=== PATIENT | female | born 1945 | race Caucasian/White ===

== ENCOUNTER → 2020-08-09 14:11 | Outpatient (BNVA) | payer OTHER, SELFPAY | PROVIDERS: PCP Family Medicine; Visit Provider Internal Medicine | DX: E11.65 Type 2 diabetes mellitus with hyperglycemia (principal); E78.5 Hyperlipidemia, unspecified; I10 Essential (primary) hypertension | CPT/HCPCS: 99204 ==

== ENCOUNTER → 2021-05-18 15:48 | Outpatient (BNVA) | payer MEDICARE, SELFPAY | PROVIDERS: PCP Family Medicine; Referring Provider Family Medicine; Visit Provider Podiatrist Foot & Ankle Surgery | DX: L97.512 Non-pressure chronic ulcer of other part of right foot with fat layer exposed (principal); L60.0 Ingrowing nail | CPT/HCPCS: 73630; 87070; 87075; 87077; 87186; 87205 ==

== ENCOUNTER 2021-09-22 07:44 | Outpatient (CLI) | payer MEDICARE, SELFPAY ==
[2021-09-22 08:33] LABS: Basophils # 0.1 10^3/uL (0.0-0.1); Basophils % 0.6 %; Eosinophils # 0.2 10^3/uL (0.0-0.8); Eosinophils % 1.8 %; Hematocrit 48.5 % (37.0-47.0); Hemoglobin 16.2 g/dL (11.5-15.3); Lymphocytes # 1.2 10^3/uL (0.8-4.8); Mean Corpuscular HGB Conc 33.4 g/dL (30.0-36.0); Mean Corpuscular Hemoglobin 29.9 pg (28.0-34.0); Mean Corpuscular Volume 89.5 fl (81-99); Mean Platelet Volume 9.9 fL (7.4-10.4); Monocytes # 1.1 10^3/uL (0.2-0.9); Monocytes % 12.5 %; Neutrophils # 5.92 10^3/uL (1.8-7.7); Neutrophils % 70.4 %; Nucleated Red Blood Cells % 0 %; Platelet Count 290 10^3/cmm (130-400); Red Blood Count 5.42 10^6/uL (4.1-5.3); Red Cell Distribution Width 13.7 % (12.1-15.1); White Blood Count 8.4 10^3/uL (4.0-10.0)
[2021-09-22 09:02] LABS: Alanine Aminotransferase 22 U/L (0-33); Albumin Level 4.4 g/dL (3.5-5.2); Alkaline Phosphatase 80 IU/L (35-105); Anion Gap 18.9 (5-19); Aspartate Amino Transferase 27 U/L (0-32); Blood Urea Nitrogen 15 mg/dL (8-23); Calcium 10.4 mg/dL (8.5-10.5); Carbon Dioxide 25 mmol/L (22-29); Chloride 97 mmol/L (98-107); Globulin 3.6 g/dL (1.3-4.6); Glucose 145 mg/dL (65-115); Lipase 21 U/L (13-60); Osmolality Calculated 287 mOsm/kg (285-295); Potassium 3.9 mmol/L (3.5-5.1); Sodium 137 mmol/L (136-145); Total Bilirubin 0.4 mg/dL (0.15-1.2)
[2021-09-22 09:04] LABS: Estmated Average Glucose 209; Hemoglobin A1C 8.9 % (4.0-6.0)
== END 2021-09-22 07:45 | disposition home or self-care (01) ==
PROVIDERS: PCP Family Medicine; Visit Provider Family Medicine
DX: E11.9 Type 2 diabetes mellitus without complications (principal); I10 Essential (primary) hypertension; D64.9 Anemia, unspecified
CPT/HCPCS: 80053; 83036; 83690; 85025

== ENCOUNTER → 2021-09-28 12:56 | Outpatient (BNVA) | payer MEDICARE, SELFPAY | PROVIDERS: PCP Family Medicine; Visit Provider Podiatrist Foot & Ankle Surgery | DX: M20.41 Other hammer toe(s) (acquired), right foot (principal); M20.42 Other hammer toe(s) (acquired), left foot; E11.65 Type 2 diabetes mellitus with hyperglycemia | CPT/HCPCS: 99214 ==

== ENCOUNTER 2021-10-21 11:34 | Emergency (ER) | payer MEDICARE, OTHER, SELFPAY ==
--- NOTE | 2021-10-21 11:37 | XR_ITS ---
WS: [id number] Cervical spine, 3 views, 10/21/2021 Clinical Data: trauma Comparison: None. Findings: No compression fractures are seen. There is degenerative disc narrowing at C4-C5, C5-C6 and C6-C7. There is anterior osteophyte formation from C4 through C6. There is no prevertebral soft tiss ue swelling. The odontoid is unremarkable. The soft tissues of the neck and the lung apices show only minimal calcification in the region of the right carotid bifurcation. XR/XR cervical spine 3V* [id number] Impression: 1. Negative for cervical spine fracture. 2. Osteoarthritis and degenerative disc disease C4-C6.
[2021-10-21 12:13] VITALS: BP 166/102; PULSE 92; RESP 16; TEMP 37.1; O2SAT 98; BMI 36.6
--- NOTE | 2021-10-21 12:28 | XR_ITS ---
WS: [id number] 3 views of the left second finger, 10/21/2021 Clinical Data: Trauma Comparison: None. Findings: No fractures or dislocations are seen. The soft tissues are normal. The epiphyses and joint spaces ar e not remarkable. XR/XR finger LT min 2V [id number] Impression: Negative left second finger.
--- NOTE | 2021-10-21 12:28 | XR_ITS ---
WS: [id number] Nasal bones, 3 views, 10/21/2021 Clinical Data: Trauma Comparison: None. Findings: No nasal bone fractures are seen. The nasal spine is intact. The adjacent orbits and sinuses show no abnormalities. XR/XR nasal bones min 3V [id number] Impression: Negative nasal bones.
--- NOTE | 2021-10-21 12:28 | XR_ITS ---
WS: [email or web address] 2 views of the right second finger, 10/21/2021 Clinical Data: Trauma Comparison: None. Findings: No definite fractures or dislocations are seen. The soft tissues are normal. The joint spaces are not remarkable. There is a small fragment adjacent to the distal portion of the right second finger middle phalanx wh ich could represent a minimal avulsion fracture. XR/XR finger RT min 2V [id number] Impression: Minimal fragment adjacent to the distal portion of the right second finger midd le phalanx, questionable avulsion fracture.
--- NOTE | 2021-10-21 13:20 | ED_ITS ---
HPI - Fall General: Chief Complaint: Fall Stated Complaint: WC-FALL AT WORK/FACIAL INJURY Time Seen by Provider: 10/21/21 12:19 Source: patient Mode of arrival: ambulatory Limitations: no limitations History of Present Illness: 76-year-old female presents emergency room after mechanical ground-level fall at work. She stumbled and landed she hit her face on the floor she denies loss conscious she is awake alert and oriented she is not use any anticoagulants. She has laceration gusher's are noted in the left lower lip. She also is complaining of pain bilaterally in her index fingers. No loss conscious no vomiting. MD complaint: fall Onset (ago): minute(s) Fall from: standing Fall witnessed: yes, by bystander Place fall occurred: work Loss of consciousness: None Prolonged down time: no Context: tripped/slipped Location of injury: head Associated symptoms-after fall: Denies abdominal pain, chest pain, confusion, difficulty walking, headache(s), hematuria, lightheadedness, neck pain, numbness, short of breath, vertigo or weakness Review of Systems Const: Denies: fever(s), chills, body aches, change in appetite, fatigue or malaise ENMT: Denies: throat pain, ear or mastoid pain, nasal discharge or nasal c ongestion Card: Denies: chest pain or lightheadedness Resp: Denies: dyspnea, productive cough or non-productive cough GI: Denies: abdominal pain, nausea or vomiting : Denies: flank pain, difficulty voiding, dysuria, urinary frequency, urinary urgency or hematuria Musc: Denies: neck pain Skin/Breast: Denies: rash or pruritus Neuro: Denies: headache(s), difficulty walking, vertigo or confusion PFSH ED PFSH: Medical History Diabetes mellitus Surgical History H/O: hysterectomy History of esophagogastroduodenoscopy (EGD) History of tonsillectomy and adenoidectomy Family History Father Hyperlipidemia Hypertension Mother Psychiatric illness Social History Smoking and tobacco status: never smoked Second hand smoke exposure: No Alcohol intake: never History of recent travel: No Physical Exam Const: COMMON NORMALS: no acute distress GENERAL APPEARANCE: cooperative and comfortable ORIENTATION/CONSCIOUSNESS: Yes awake, Yes oriented to person, Yes oriented to place and Yes oriented to time HENMT: COMMON NORMALS: normocephalic, atraumatic, hearing grossly normal bilaterally, external ears normal, EAC's normal, TM's normal bilaterally, Normal nasal mucous membranes and turbinates present, moist oral mucous membranes and oropharynx normal HEAD & SCALP: normocephalic and atraumatic NOSE: Normal nasal mucous membranes and turbinates present EXTERNAL EAR: Yes external ears normal EXTERNAL AUDITORY CANAL: EAC's normal TYMPANIC MEMBRANE: TM's normal bilaterally Eye: COMMON NORMALS: Equal, round and reactive pupils present, EOMs intact bilaterally, conjunctivae normal and no scleral icterus CONJUNCTIVA: Yes conjunctivae normal PUPIL: Yes Equal, round and reactive pupils present Neck/C-Spine: COMMON NORMALS: full ROM, no lymphadenopathy, supple and no JVD Resp: COMMON NORMALS: normal respiratory effort, No retractions, No use of accessory muscles and clear to auscultation bilaterally AUSCULTATION: clear to auscultation bilaterally Cardio: COMMON NORMALS: no JVD, regular rate, regular rhythm and No murmurs present (Cardio) RATE: regular rate RHYTHM: regular rhythm GI: COMMON NORMALS: Soft to palpation and No hepatosplenomegaly present AUSCULTATION: Yes normoactive bowel sounds PALPATION: Yes Soft to palpation, No Tenderness to palpation present (GI), No Guarding due to palpation present (GI) and Yes No hepatosplenomegaly present Extremity: COMMON NORMALS: normal to inspection, capillary refill normal, no clubbing, cyanosis or edema, no calf tenderness and no pedal edema Neuro: SENSORIUM/ORIENTATION: Yes oriented to person, Yes oriented to place and Yes oriented to time Skin: COMMON NORMALS: no rashes or lesions noted GENERAL SKIN EXAM: no rashes or lesions noted OTHER: laceration on the bridge of the nose - no gaping, no active bleeding, laceration in the lower inner left lip and external - no active bleeding. Course Vital Signs: Vital signs: Vital Signs Temperature 98.8 F 10/21/21 12:13 Pulse Rate 92 10/21/21 12:13 Respiratory Rate 16 10/21/21 12:13 Blood Pressure 166/102 10/21/21 12:13 Pulse Oximetry 98 10/21/21 12:13 MDM - Fall Medical Decision Making wound care instrucitons given. follow up with primary care or work comp physician in the next week. Medical Records I reviewed the patient's medical records. Lab Data I reviewed the patient's lab results. Radiology Impressions Cervical Spine X-Ray 10/21/21 11:37 Impression: 1. Negative for cervical spine fracture. 2. Osteoarthritis and degenerative disc disease C4-C6. Discharge Plan Discharge Patient Disposition: Home Clinical Impression: Fall, Laceration of lip Condition: Stable Prescriptions: New hydrocodone-acetaminophen 5-325 mg tablet 1 tab PO Q6H PRN (Reason: pain) Qty: 10 0RF mupirocin 2 % ointment 1 applic topical BID Qty: 15 0RF No Action mupirocin 2 % ointment 1 applic topical TID 14 Days Qty: 22 3RF Jardiance 10 mg tablet 10 mg PO DAILY 0RF ezetimibe [Zetia] 10 mg tablet 10 mg PO DAILY 0RF lisinopril-hydrochlorothiazide 20-12.5 mg tablet 1 tab PO DAILY 0RF (DME) BD Insulin Syringe 1 mL 25 gauge x 5/8 syringe See Rx Instructions .ROUTE .MEDSUPPLY Qty: 100 0RF Rx Instructions: As directed omega-3 fatty acids 1,000 mg capsule 1,000 mg PO DAILY 0RF mecobalamin (vitamin B12) 1,000 mcg tablet,chewable 1,000 mcg PO DAILY 0RF cholecalciferol (vitamin D3) 25 mcg (1,000 unit) capsule 25 mcg PO DAILY 0RF (DME) pen needle, diabetic [BD Kaykay 2nd Gen Pen Needle] 32 gauge x 5/32 needle See Rx Instructions .ROUTE .MEDSUPPLY Qty: 100 3RF Rx Instructions: As directed metformin 1,000 mg tablet 1,000 mg PO BID 90 Days Qty: 180 3RF Rx Instructions: take 1 tablet daily Levemir FlexTouch U-100 Insuln 100 unit/mL (3 mL) insulin pen 42 unit SUBCUT BID Qty: 15 3RF Rx Instructions: Administer 42 units in AM and also in PM. only at [facility] pharmacy (DME) blood-glucose meter [Contour Next Glucose Meter] Kit See Rx Instructions .Route Qty: 1 0RF Rx Instructions: Monitor blood sugar 3-4 times a day. (DME) Contour Test Strips Strip See Rx Instructions .ROUTE .MEDSUPPLY Qty: 10 0RF Rx Instructions: check 3 times a day linezolid 600 mg tablet 600 mg PO BID 7 Days Qty: 14 0RF Discharge Orders: Discharge ED (Routine); Ordered 10/21/21 Ordered By: Jose Juan Morales Referrals: Arturo Bruno MD [Primary Care Provider] - Discharge Diet: Usual diet Discharge Activity: Resume usual activity Patient Instructions: Opioid Safety Activity Restrictions/Additional Instructions: Topical antibiotic ointment to the outside of the lip twice daily. Also applied to the bridge of the nose. Follow-up with your work comp or primary care doctor within the week. Coding Level of Care Code ED Scrap Hoist Operator for April Fwd Exam Comprehensive
[2021-10-21] MEDS: tetanus-dipt-pertussis 0.5 mL SDV IM (13:30)
[2021-10-21 13:38] LABS: Basophils # 0.1 10^3/uL (0.0-0.1); Basophils % 0.9 %; Eosinophils # 0.2 10^3/uL (0.0-0.8); Eosinophils % 1.9 %; Hemoglobin 15.5 g/dL (11.5-15.3); Lymphocytes # 1.4 10^3/uL (0.8-4.8); Lymphocytes % 13.3 %; Mean Corpuscular HGB Conc 34.4 g/dL (30.0-36.0); Mean Corpuscular Hemoglobin 29.9 pg (28.0-34.0); Mean Corpuscular Volume 86.9 fl (81-99); Mean Platelet Volume 9.6 fL (7.4-10.4); Monocytes # 0.8 10^3/uL (0.2-0.9); Monocytes % 7.8 %; Neutrophils # 7.92 10^3/uL (1.8-7.7); Neutrophils % 74.9 %; Nucleated Red Blood Cells % 0 %; Platelet Count 329 10^3/cmm (130-400); Red Blood Count 5.18 10^6/uL (4.1-5.3); Red Cell Distribution Width 12.9 % (12.1-15.1); White Blood Count 10.6 10^3/uL (4.0-10.0)
[2021-10-21 13:55] LABS: Anion Gap 17.8 (5-19); Blood Urea Nitrogen 19 mg/dL (8-23); Calcium 9.9 mg/dL (8.5-10.5); Carbon Dioxide 24 mmol/L (22-29); Chloride 100 mmol/L (98-107); Glucose 165 mg/dL (65-115); Osmolality Calculated 292 mOsm/kg (285-295); Potassium 3.8 mmol/L (3.5-5.1); Sodium 138 mmol/L (136-145)
[2021-10-21 13:56] LABS: Alcohol Level < 10 mg/dL (0-10)
[2021-10-21 14:18] LABS: Amphetamines Screen Urine Negative (Negative); Barbiturates Screen Urine Negative (Negative); Benzodiazepines Screen Urine Negative (Negative); Cocaine Screen Urine Negative (Negative); Opiate Screen Urine Negative (Negative); PCP Screen Urine Negative (Negative); THC Screen Urine Negative (Negative)
== END 2021-10-21 14:20 | disposition home or self-care (01) ==
PROVIDERS: Emergency Provider Family Medicine; PCP Family Medicine
DX: S01.511A Laceration without foreign body of lip, initial encounter (principal); S01.21XA Laceration without foreign body of nose, initial encounter; W01.198A Fall on same level from slipping, tripping and stumbling with subsequent striking against other object, initial encounter; Y92.89 Other specified places as the place of occurrence of the external cause; M79.645 Pain in left finger(s); M79.644 Pain in right finger(s); Z23 Encounter for immunization
CPT/HCPCS: 36415; 70160; 72040; 73140; 80048; 80306; 80307; 85025; 90471; 90715; 99283

== ENCOUNTER → 2022-01-20 07:41 | Outpatient (BNVA) | payer MEDICARE, OTHER, SELFPAY | PROVIDERS: PCP Family Medicine; Visit Provider Family Medicine | DX: E78.5 Hyperlipidemia, unspecified (principal); I10 Essential (primary) hypertension; E11.9 Type 2 diabetes mellitus without complications | CPT/HCPCS: 80053; 80061; 82607; 83036; 84443; 85025 ==

== ENCOUNTER → 2022-01-31 12:57 | Outpatient (BNVA) | payer MEDICARE, SELFPAY | PROVIDERS: PCP Family Medicine; Visit Provider Podiatrist Foot & Ankle Surgery | DX: Z79.4 Long term (current) use of insulin (principal); E11.65 Type 2 diabetes mellitus with hyperglycemia; M20.41 Other hammer toe(s) (acquired), right foot; M20.42 Other hammer toe(s) (acquired), left foot | CPT/HCPCS: 99214 ==

== ENCOUNTER 2022-04-17 00:25 | Emergency (ER) | payer MEDICARE, SELFPAY ==
[2022-04-17 00:29] VITALS: BP 146/78; PULSE 89; RESP 18; TEMP 37.2; O2SAT 98; BMI 35.7
--- NOTE | 2022-04-17 01:06 | CTR_ITS ---
PROCEDURE INFORMATION: Exam: CT Head Without Contrast Exam date and time: 04/17/2022 1:51 AM Age: 76 years old Clinical indication: Altered mental status/memory loss; Confusion or disorientation; Additional info: AMS TECHNIQUE: Imaging protocol: Computed tomography of the head without contrast. Radiation optimization: All CT scans at this facility use at least one of these dose optimization techniques: automated exposure control; mA and/or kV adjustment per patient size (includes targeted exams where dose is matched to clinical indication); or iterative reconstruction. COMPARISON: CR XR nasal bones min 3V [id number] 10/21/2021 12:51 PM RADIATION DOSE METRICS: Total DLP (mGy-cm): 1103.71 FINDINGS: Brain: A right parietal area of hypodensity measures 4.1 cm. No focal hemorrhage or midline shift. Ventricles and parenchyma show moderate atrophy and chronic cerebral white matter ischemic change. A few other old-appearing scattered small infarcts are visualized. Cerebral ventricles: See Brain finding. No hydrocephalus. Paranasal sinuses: The partially assessed sinuses are grossly clear. Mastoid air cells: Visualized mastoid air cells are well aerated. Bones/joints: No displaced skull fracture is noted. Soft tissues: Unremarkable. Vasculature: Moderate vascular calcification. CT/CT head wo con* [id number] IMPRESSION: 1. No focal hemorrhage or midline shift. 2. 4 cm area of right parietal hypodensity. This may be due to subacute vs. old infarction. Advise correlation. This is quite conspicuous on head CT and is therefore unlikely to be hyperacute. If there is concern for acute stroke, an MRI should be considered. 3. Advanced age-related changes. Advanced atherosclerosis.
--- NOTE | 2022-04-17 01:11 | ED_ITS ---
HPI - Altered Mental Status General: Chief Complaint: Altered Mental Status Stated Complaint: Confusion Time Seen by Provider: 04/17/22 00:39 Source: patient History of Present Illness: 76-year-old female who presents with some confusion after a couple of falls yesterday. She states that she has felt cold. Her blood sugars have been hard to control. She has been weak and her knees feel like Jell-O . She denies any cough, overt fever, vomiting or diarrhea. She denies headache. She denies hitting her head in the falls. She does note that her knees have been more sore. She states that she has not had her insulin in the last 24 hours. MD complaint: confusion Onset (ago): hour(s) Severity: moderate Consistency of symptoms: Waxing and Waning Context: other Associated symptoms: Reports delusions; Deny auditory hallucinations, visual hallucinations or depression Review of Systems Const: Reports: chills and body aches; Denies: fever(s) Eyes: Denies: change in vision ENMT: Denies: throat pain Card: Denies: chest pain Resp: Denies: dyspnea, productive cough or non-productive cough GI: Denies: abdominal pain, nausea or vomiting Musc: Denies: neck pain Skin/Breast: Denies: rash Neuro: Denies: headache(s) Psych: Denies: depression, visual hallucinations or auditory hallucinations [facility] ED PFSH: Medical History Diabetes mellitus Surgical History H/O: hysterectomy History of esophagogastroduodenoscopy (EGD) History of tonsillectomy and adenoidectomy Family History Father Hyperlipidemia Hypertension Mother Psychiatric illness Social History Smoking and tobacco status: never smoked Second hand smoke exposure: No Alcohol intake: never History of recent travel: No Physical Exam Const: COMMON NORMALS: alert GENERAL APPEARANCE: frail appearing (mildly); not ill appearing ORIENTATION/CONSCIOUSNESS: Yes awake and Yes oriented to person; not oriented to time HENMT: COMMON NORMALS: normocephalic, atraumatic and Normal external nose present HEAD & SCALP: normocephalic and atraumatic FACE & SINUS: normal facial exam and face symmetric NOSE: Normal external nose present THROAT: posterior oropharynx normal Eye: COMMON NORMALS: Equal, round and reactive pupils present and EOMs intact bilaterally PUPIL: Yes Equal, round and reactive pupils present Chest: CHEST: Yes Symmetrical chest wall rise Resp: COMMON NORMALS: normal respiratory effort, No use of accessory muscles and clear to auscultation bilaterally AUSCULTATION: clear to auscultation bilaterally Cardio: COMMON NORMALS: regular rate and regular rhythm RATE: regular rate RHYTHM: regular rhythm GI: COMMON NORMALS: Normal to inspection, nondistended, normoactive bowel sounds present, Soft to palpation and non-tender PALPATION: Yes Soft to palpation Extremity: GENERAL: Yes edema (mild) Neuro: [place] COMA SCALE: document GCS findings [place] coma scale eye opening: Spontaneous [place] coma scale verbal response: Confused [place] coma scale motor response: Obey commands [place] coma scale total score: 14 SENSORIUM/ORIENTATION: Yes alert, Yes oriented to person and No oriented to time CRANIAL NERVES: Yes CN normal except as noted COORDINATION/BALANCE: [id number] test normal SPEECH: speech normal SENSORY EXAM: Yes extremities (intact) MOTOR EXAM: Pronator motor function not present COORDINATION: [id number] test normal Psych: COMMON NORMALS: cooperative THOUGHT CONTENT: Yes delusions Course Vital Signs: Vital signs: Vital Signs Temperature 98.9 F 04/17/22 00:29 Pulse Rate 89 04/17/22 04:46 Respiratory Rate 16 04/17/22 04:46 Blood Pressure 115/91 04/17/22 04:46 Pulse Oximetry 97 04/17/22 04:46 MDM - Altered Mental Status Medical Decision Making FifthThis patient is feeling much improved after IV fluid administration/hydration. She is making more sense. She was able to stand, and transfer. Laboratory showed white blood cell count of 11. Hemoglobin is 15. Urinalysis is negative. Swabs for flu and COVID are negative. CRP is only 5. Head CT shows a 4 cm area of hypodensity in the right parietal region. There is no associated neurological findings with this imaging finding. She has some advanced age-related changes as well. Chest x-ray was negative. With return of near her baseline, and lack of definitive findings, she will be allowed home. Daughter will stay with her today. Lab Data 04/17/22 00:13 04/17/22 00:[address] 04/17/22 01:06 IMPRESSION: 1. No focal hemorrhage or midline shift. 2. 4 cm area of right parietal hypodensity. This may be due to subacute vs. old infarction. Advise correlation. This is quite conspicuous on head CT and is therefore unlikely to be hyperacute. If there is concern for acute stroke, an MRI should be considered. 3. Advanced age-related changes. Advanced atherosclerosis. Chest X-Ray 04/17/22 01:52 IMPRESSION: 1. No acute finding visualized. 2. Small left midlung nodularity. This may or may not be calcified. Recommend 3-6 month follow-up. There are no priors in PACs. Laboratory Results WBC 11.2 10^3/uL (4.0-10.0) H 04/17/22 00:13 RBC 5.37 10^6/uL (4.1-5.3) H 04/17/22 00:13 Hgb 15.7 g/dL (11.5-15.3) H 04/17/22 00:13 Hct 47.9 % (37.0-47.0) H 04/17/22 00:13 MCV 89.2 fl (81-99) 04/17/22 00:13 MCH 29.2 pg (28.0-34.0) 04/17/22 00:13 MCHC 32.8 g/dL (30.0-36.0) 04/17/22 00:13 RDW 13.3 % (12.1-15.1) 04/17/22 00:13 Plt Count 354 10^3/cmm (130-400) 04/17/22 00:13 MPV 10.1 fL (7.4-10.4) 04/17/22 00:13 Neut % (Auto) 63.7 % 04/17/22 00:13 Lymph % (Auto) 23.9 % 04/17/22 00:13 [place] % (Auto) 8.8 % 04/17/22 00:13 Eos % (Auto) 2.4 % 04/17/22 00:13 Baso % (Auto) 0.6 % 04/17/22 00:13 Neut # (Auto) 7.12 10^3/uL (1.8-7.7) 04/17/22 00:13 Lymph # (Auto) 2.7 10^3/uL (0.8-4.8) 04/17/22 00:13 [place] # (Auto) 1.0 10^3/uL (0.2-0.9) H 04/17/22 00:13 Eos # (Auto) 0.3 10^3/uL (0.0-0.8) 04/17/22 00:13 Baso # (Auto) 0.1 10^3/uL (0.0-0.1) 04/17/22 00:13 Nucleated RBC % (auto) 0 % 04/17/22 00:13 Nucleated RBCs # 0.0 /100WBC 04/17/22 00:13 Sodium 135 mmol/L (136-145) L 04/17/22 00:13 Potassium 3.6 mmol/L (3.5-5.1) 04/17/22 00:13 Chloride 96 mmol/L (98-107) L 04/17/22 00:13 Carbon Dioxide 24 mmol/L (22-29) 04/17/22 00:13 Anion Gap 18.6 (5-19) 04/17/22 00:13 BUN 17 mg/dL (8-23) 04/17/22 00:13 Creatinine 0.9 mg/dL (0.5-0.9) 04/17/22 00:13 GFR Calculation Not Reportable 04/17/22 00:13 Glucose 164 mg/dL (65-115) H 04/17/22 00:13 Calculated Osmolality 285 mOsm/kg (285-295) 04/17/22 00:13 Lactate 1.1 mmol/L (0.5-2.2) 04/17/22 01:35 Calcium 9.7 mg/dL (8.5-10.5) 04/17/22 00:13 Total Bilirubin 0.4 mg/dL (0.15-1.2) 04/17/22 00:13 AST 19 U/L (0-32) 04/17/22 00:13 ALT 16 U/L (0-33) 04/17/22 00:13 Alkaline Phosphatase 106 U/L (35-105) H 04/17/22 00:13 Creatine Kinase 82 U/L (26-192) 04/17/22 00:13 C-Reactive Protein 5.0 mg/L (0.0-4.9) H 04/17/22 00:13 NT-Pro-B Natriuret Pep 48 pg/mL (0-450) 04/17/22 00:13 Total Protein 7.8 g/dL (6.6-8.7) 04/17/22 00:13 Albumin 4.0 g/dL (3.5-5.2) 04/17/22 00:13 Globulin 3.8 g/dL (1.3-4.6) 04/17/22 00:13 Urine Color Yellow (Yellow) 04/17/22 02:51 Urine Appearance Clear (CLEAR) 04/17/22 02:51 Urine pH 5 (5-7) 04/17/22 02:51 Ur Specific [place] 1.020 (1.005-1.030) 04/17/22 02:51 Urine Protein Neg (Negative) 04/17/22 02:51 Urine Glucose (UA) 4+ (Normal) H 04/17/22 02:51 Urine Ketones 1+ (Negative) H 04/17/22 02:51 Urine Blood Neg (Negative) 04/17/22 02:51 Urine Nitrate Negative (Negative) 04/17/22 02:51 Urine Bilirubin Neg (Negative) 04/17/22 02:51 Urine Urobilinogen Neg mg/dL (Negative) 04/17/22 02:51 Ur Leukocyte Esterase Negative (Negative) 04/17/22 02:51 Influenza Type A Ag negative (Negative) 04/17/22 01:41 Influenza Type B Ag negative (Negative) 04/17/22 01:41 SARS-CoV-2 Ag (Rapid) negative (Negative) 04/17/22 01:41 Blood Type A Negative 04/17/22 01:35 Rho(D) Type Negative 04/17/22 01:35 Antibody Screen Negative 04/17/22 01:35 Discharge Plan Discharge Patient Disposition: Home Clinical Impression: Altered mental status, Acute dehydration Condition: Stable Prescriptions: No Action (DME) BD Insulin Syringe 1 mL 25 gauge x 5/8 syringe See Rx Instructions .ROUTE .MEDSUPPLY Qty: 100 Rx Instructions: As directed omega-3 fatty acids 1,000 mg capsule 1,000 mg PO DAILY mecobalamin (vitamin B12) 1,000 mcg tablet,chewable 1,000 mcg PO DAILY (DME) pen needle, diabetic [BD Kaykay 2nd Gen Pen Needle] 32 gauge x 5/32 needle See Rx Instructions .ROUTE .MEDSUPPLY Qty: 100 3RF Rx Instructions: As directed red yeast rice 600 mg tablet 600 mg PO BID Rx Instructions: give with meal/snack Levemir FlexTouch U-100 Insuln 100 unit/mL (3 mL) insulin pen 50 unit SUBCUT BID Rx Instructions: Administer 50 units in AM and also in PM. only at [facility] pharmacy Jardiance 10 mg tablet 10 mg PO DAILY Qty: 90 3RF glimepiride 4 mg tablet 4 mg PO BID Qty: 60 11RF Rx Instructions: administer with breakfast for first week then increase to twice a day (DME) blood-glucose meter [Contour Next Glucose Meter] Kit See Rx Instructions .Route Qty: 1 0RF Rx Instructions: Monitor blood sugar 3-4 times a day. (DME) Contour Test Strips Strip See Rx Instructions .ROUTE .MEDSUPPLY Qty: 10 0RF Rx Instructions: check 3 times a day lisinopril-hydrochlorothiazide 20-12.5 mg tablet See Rx Instructions .ROUTE .COMPLEX Qty: 90 3RF Dose Instruction: TAKE 1 TABLET EVERY DAY Rx Instructions: TAKE 1 TABLET EVERY DAY ezetimibe 10 mg tablet See Rx Instructions .ROUTE .COMPLEX Qty: 90 3RF Dose Instruction: TAKE 1 TABLET EVERY DAY Rx Instructions: TAKE 1 TABLET EVERY DAY mupirocin 2 % ointment 1 applic topical BID Qty: 15 0RF Discharge Orders: Discharge ED (Routine); Ordered 04/17/22 Ordered By: Valerio Mcclellan Referrals: Arturo Brnuo MD [Primary Care Provider] - 1-3 days Patient Instructions: Dehydration (ED), Altered Mental Status (ED) Activity Restrictions/Additional Instructions: Hydrate as instructed over the next 24 hours. Watch for fever closely and treat accordingly. Return for any concerning symptoms, worsening weakness or mental status, etc. call your doctor later this morning, they will likely want to see you this week. Coding Level of Care Code ED Mobile Designer for April Fwd Exam Comprehensive
[2022-04-17 01:18] LABS: Basophils # 0.1 10^3/uL (0.0-0.1); Basophils % 0.6 %; Eosinophils # 0.3 10^3/uL (0.0-0.8); Eosinophils % 2.4 %; Hematocrit 47.9 % (37.0-47.0); Hemoglobin 15.7 g/dL (11.5-15.3); Lymphocytes # 2.7 10^3/uL (0.8-4.8); Lymphocytes % 23.9 %; Mean Corpuscular HGB Conc 32.8 g/dL (30.0-36.0); Mean Corpuscular Hemoglobin 29.2 pg (28.0-34.0); Mean Corpuscular Volume 89.2 fl (81-99); Mean Platelet Volume 10.1 fL (7.4-10.4); Monocytes % 8.8 %; Neutrophils # 7.12 10^3/uL (1.8-7.7); Neutrophils % 63.7 %; Nucleated Red Blood Cells % 0 %; Platelet Count 354 10^3/cmm (130-400); Red Blood Count 5.37 10^6/uL (4.1-5.3); Red Cell Distribution Width 13.3 % (12.1-15.1); White Blood Count 11.2 10^3/uL (4.0-10.0)
[2022-04-17 01:39] LABS: Alanine Aminotransferase 16 U/L (0-33); Alkaline Phosphatase 106 U/L (35-105); Aspartate Amino Transferase 19 U/L (0-32); Blood Urea Nitrogen 17 mg/dL (8-23); Calcium 9.7 mg/dL (8.5-10.5); Carbon Dioxide 24 mmol/L (22-29); Chloride 96 mmol/L (98-107); Creatine Phosphokinase 82 U/L (26-192); Globulin 3.8 g/dL (1.3-4.6); Glucose 164 mg/dL (65-115); NT Pro B Type Natriuretic Pept 48 pg/mL (0-450); Osmolality Calculated 285 mOsm/kg (285-295); Sodium 135 mmol/L (136-145); Total Bilirubin 0.4 mg/dL (0.15-1.2); Total Protein 7.8 g/dL (6.6-8.7)
[2022-04-17 01:42] LABS: Anion Gap 18.6 (5-19); Potassium 3.6 mmol/L (3.5-5.1)
[2022-04-17] MEDS: sodium chloride 0.9% 1,000 ML 999 ML IV (01:45)
--- NOTE | 2022-04-17 01:52 | XRR_ITS ---
PROCEDURE INFORMATION: Exam: XR Chest Exam date and time: 04/17/2022 2:53 AM Age: 76 years old Clinical indication: Other: AMS TECHNIQUE: Imaging protocol: Radiologic exam of the chest. Views: 1 view. COMPARISON: CR XR cervical spine 3V* [id number] 10/21/2021 11:53 AM FINDINGS: Lungs: Small left midlung nodularity. No consolidation or large mass noted. Pleural spaces: Unremarkable. No pleural effusion. No pneumothorax. Heart/Mediastinum: The heart is mildly enlarged. Bones/joints: Unremarkable. XR/XR chest 1V portable [id number] IMPRESSION: 1. No acute finding visualized. 2. Small left midlung nodularity. This may or may not be calcified. Recommend 3-6 month follow-up. There are no priors in PACs.
[2022-04-17 02:12] LABS: Lactate (Lactic Acid level) 1.1 mmol/L (0.5-2.2)
[2022-04-17 02:15] VITALS: BP 145/91; PULSE 84; RESP 16; O2SAT 95
[2022-04-17 03:00] LABS: Add Urine Microscopic? NO; Charge for UA Resulting for Rev
[2022-04-17 03:01] VITALS: BP 143/96; PULSE 85; RESP 16; O2SAT 99
[2022-04-17 03:04] LABS: Influenza A by IFA negative (Negative); Influenza B by IFA negative (Negative); SARS Covid-2 Antigen negative (Negative)
[2022-04-17 03:11] LABS: Glucose Urine UA 4+ (Normal); Protein Urine Neg (Negative); Urine Appearance Clear (CLEAR); Urine Color Yellow (Yellow); pH Urine 5 (5-7)
[2022-04-17 03:12] LABS: Bilirubin Urine Neg (Negative); Blood Urine Neg (Negative); Ketones Urine 1+ (Negative); Leukocyte Esterase Urine Negative (Negative); Nitrate Urine Negative (Negative); Urobilinogen Urine Neg (Negative)
[2022-04-17 03:30] VITALS: BP 137/91; PULSE 88; RESP 16; O2SAT 99
[2022-04-17 04:46] VITALS: BP 115/91; PULSE 89; RESP 16; O2SAT 97
== END 2022-04-17 04:47 | disposition home or self-care (01) ==
PROVIDERS: Emergency Provider Emergency Medicine; PCP Family Medicine
DX: R41.82 Altered mental status, unspecified (principal); E86.0 Dehydration; Z79.84 Long term (current) use of oral hypoglycemic drugs; Z79.4 Long term (current) use of insulin; Z20.822 Contact with and (suspected) exposure to COVID-19; E11.9 Type 2 diabetes mellitus without complications
CPT/HCPCS: 70450; 71045; 80053; 81003; 82550; 83605; 83880; 85025; 86140; 86850; 86900; 87040; 87426; 87804; 96360; 99285; J7030

== ENCOUNTER → 2022-05-03 07:58 | Outpatient (BNVA) | payer MEDICARE, SELFPAY | PROVIDERS: PCP Family Medicine; Visit Provider Family Medicine | DX: E11.65 Type 2 diabetes mellitus with hyperglycemia (principal); E78.5 Hyperlipidemia, unspecified; I10 Essential (primary) hypertension; E11.9 Type 2 diabetes mellitus without complications | CPT/HCPCS: 80053; 80061; 83036 ==

== ENCOUNTER 2022-05-24 06:00 | Outpatient (RCR) | payer MEDICARE, SELFPAY | END 2022-06-06 23:59 | disposition home or self-care (01) | LOC: SOT 06:00 | PROVIDERS: PCP Family Medicine; Visit Provider Family Medicine | DX: I63.30 Cerebral infarction due to thrombosis of unspecified cerebral artery (principal) | CPT/HCPCS: 97110; 97166 ==

== ENCOUNTER 2022-06-06 08:26 | Outpatient (CLI) | payer MEDICARE, SELFPAY ==
--- NOTE | 2022-06-06 09:30 | MR_ITS ---
WS: [id number] MRI HEAD WITHOUT CONTRAST TECHNIQUE: Sagittal T1, T2 axial, T2 axial FLAIR, axial and coronal T1 images, axial susceptibility w eighted imaging, axial diffusion weighted images, and coronal T2 images were obtained. Unable to obta in IV access. Contrast not administered. CLINICAL INFORMATION: abnormal CT, r/o MS or CVA COMPARISON: CT 04/07/22 FINDINGS: Some images degraded by patient motion. Fast imaging performed. No restricted diffusion to suggest acute ischemia. 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 No acute hemorrhage. N o significant mass effect or midline shift. Moderate small vessel changes with mild/moderate parenchy mal volume loss. Small vessel changes in the maria e. Normal posterior fossa. Normal vascular flow voids at the skull bas e. No extra-axial fluid collections. No evidence of mass or mass effect. Paranasal sinuses and mastoi d air cells well aerated. Normal posterior nasopharynx. Visualized orbits are normal. No hemosiderin on susceptibly weighted images. Normal optic chiasm and pituitary infundibulum. Normal cavernous sinu ses and Meckel's cave. Moderate symmetric atrophy temporal lobes and hippocampal formations. MR/MR head wo con* [id number] IMPRESSION: Some images degraded by motion. 1. No restricted diffusion to suggest acute ischemia. 2. 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 No significant mass effect or midline shift . No hemorrhage. This corresponds to CT findings from April 17, 2022. 3. Moderate small vessel changes with moderate parenchymal volume loss. Small vessel changes in the maria e. 4. Moderate symmetric atrophy temporal lobes and hippocampal formations. 5. No other suspicious findings.
== END 2022-06-06 08:27 | disposition home or self-care (01) ==
LOC: RAD 08:31
PROVIDERS: PCP Family Medicine; Visit Provider Family Medicine
DX: I63.9 Cerebral infarction, unspecified (principal)
CPT/HCPCS: 70551

== ENCOUNTER → 2022-06-08 09:55 | Outpatient (BNVA) | payer MEDICARE, SELFPAY | PROVIDERS: PCP Family Medicine; Visit Provider Family Medicine | DX: R53.83 Other fatigue (principal); G45.9 Transient cerebral ischemic attack, unspecified; I63.9 Cerebral infarction, unspecified; F41.9 Anxiety disorder, unspecified | CPT/HCPCS: 80048; 85025 ==

== ENCOUNTER → 2022-06-21 07:51 | Outpatient (BNVA) | payer MEDICARE, SELFPAY | PROVIDERS: PCP Family Medicine; Visit Provider Family Medicine | DX: E11.9 Type 2 diabetes mellitus without complications (principal); E78.5 Hyperlipidemia, unspecified | CPT/HCPCS: 83540; 83735; 85025; 86140 ==

== ENCOUNTER 2022-07-03 10:19 | Outpatient (CLI) | payer MEDICARE, SELFPAY ==
--- NOTE | 2022-07-03 11:00 | USCV_ITS ---
Keya Darlene Age: 76 Gender: F : 1945 Exam Date: 07/03/2022 10:42 Ordering Phys: Arturo Bruno MD Technologist: [email or web address] [place]am Location: [facility] [place]: Checking for CCA occlusion Risk Factors: Unknown Previous Vascular Surgery: Right Brachial BP: / Left Brachial BP: / Right Left Velocity (cm/s) Spectral Plaque Velocity (cm/s) Spectral Plaque Syst/Diast Broadening Syst/Diast Broadening / Prox CCA 68.10 / 13.00 38.50/ 7.70 Mid CCA 52.10 / 11.20 46.20/ 8.30 Distal CCA 59.20 / 14.80 50.90/ 14.20 Prox ICA 58.10 / 16.00 59.20/ 17.80 Mid ICA 61.10 / 19.00 63.30/ 18.90 Distal ICA 69.10 / 22.00 71.60 ECA 94.20 1.65 ICA/CCA 1.33 Antegrade Vertebral Antegrade 26.90/ 6.90 cm/s 41.70/ 11.70 cm/s Tri Subclavian Tri 50.50 135.0 0 FINDINGS Mild diffuse dense plaques in the right bifurcation, common carotid and internal carotid arteries. Intimal thickening in the left common carotid artery. Minimal plaque at the bifurcation Antegrade flow in the vertebral arteries bilaterally Normal Doppler flow velocities in the external carotid, subclavian and vertebral arteries bilaterally CONCLUSIONS Minimal plaques at the bifurcations bilaterally, suggesting less than 50% stenosis. Intimal thickening and minimal plaques in the common aorta arteries bilaterally. No significant stenosis in the external carotid, vertebral and subclavian arteries bilaterally, based on the above findings No similar previous studies are available for comparison Dr Zach Medina MD [facility] (Electronically Signed) Final Date: 05 July 2022 05:36 S
== END 2022-07-03 10:20 | disposition home or self-care (01) ==
PROVIDERS: PCP Family Medicine; Visit Provider Family Medicine
DX: I63.9 Cerebral infarction, unspecified (principal); R53.83 Other fatigue; G45.9 Transient cerebral ischemic attack, unspecified
CPT/HCPCS: 80048; 85025; 93880